=== PATIENT | female | born 1985 | race Hispanic/Latino ===

== ENCOUNTER 2021-07-14 17:55 | Emergency (ER) | payer BC, OTHER, SELFPAY ==
[2021-07-14 18:24] LABS: #Basophils 0.1 thou/uL (0.0-0.2); #Eosinphils 0.1 thou/uL (0.0-0.7); #Lymphocytes 3.8 thou/uL (1.20-3.40); #Monocytes 0.9 thou/uL (0.11-0.59); #Neutrophils 5.1 thou/uL (1.40-6.50); %Basophils 0.8 % (0.0-1.0); %Lymphocytes 38.2 % (21.0-51.0); %Monocytes 9.4 % (0.0-10.0); %Neutrophils 50.6 % (42.0-75.0); Hemoglobin 13.5 g/dL (12.0-16.0); Mean Corpuscular HGB CONC 31.7 g/dL (32.0-36.0); Mean Corpuscular Hemoglobin 26.5 pg (27.0-31.0); Mean Corpuscular Volume 83.6 fL (78.0-98.0); Mean Platelet Volume 7.3 fL (7.4-10.4); Platelet Count 297 thou/uL (130-400); RBC Distribution Width 12.3 % (11.5-14.5); Red Blood Cell (RBC) Count 5.09 mill/uL (4.20-5.40)
[2021-07-14 18:40] LABS: ALT (SGPT) 27 U/L (8-55); AST (SGOT) 17 U/L (5-34); Albumin 4.5 g/dL (3.5-5.0); Alkaline Phosphatase 68 U/L (40-110); Anion Gap 13 mmol/L (10-20); BUN (Urea Nitrogen) 17 mg/dL (7.0-18.7); Bilirubin, Total 0.1 mg/dL (0.2-1.2); Calc. Creatinine Clearance 0 mL/min (70-130); Calcium 9.5 mg/dL (7.8-10.44); Carbon Dioxide 25 mmol/L (22-29); Chloride 103 mmol/L (98-107); Globulin 4.5 g/dL (2.4-3.5); Glucose 74 mg/dL (70-105); Lipase 66 U/L (8-78); Potassium 3.4 mmol/L (3.5-5.1); Sodium 138 mmol/L (136-145)
[2021-07-14 21:21] LABS: Troponin I Less than 0.010 ng/mL (< 0.028)
== END 2021-07-14 21:51 | disposition home or self-care (01) ==
LOC: NAV ERS 17:55
DX: R07.2 Precordial pain (principal)
CPT/HCPCS: 36415; 71045; 80053; 83690; 84484; 85025; 93005